=== PATIENT | male | born 1985 | race African-American/Black ===

== ENCOUNTER 2017-11-03 15:21 | Emergency (ER) | payer SELFPAY ==
[~2017-11-03] VITALS: Ht 193 cm; Wt 100.0 kg
[~2017-11-03 15:21] MED LIST: IBUP800T23 PO
[2017-11-03 15:27] VITALS: BP 168/73; PULSE 50; RESP 18; TEMP 97.2; O2SAT 99
--- NOTE | 2017-11-03 15:31 | PD ---
HPI Chief Complaint: Skin Problem Time Seen by Provider: 15:30 Travel History International Travel<30 days: No Contact w/Intl Traveler<30days: No Traveled to known affect area: No History of Present Illness HPI 32-year-old male with no significant medical history presents emergency department for evaluation of superficial laceration to his mid forehead. Patient states he ran into the door of a truck. Denies any loss of consciousness. Denies any pain at the site. He is up-to-date on his tetanus vaccination. No other symptoms to report. PFSH Past Medical History Bipolar Disorder: Yes Diminished Hearing: No Social History Alcohol Use: Yes (OCCASIONAL) Tobacco Use: Yes (OCCASIONAL) Substance Use: Yes (THC) Allergies-Medications (Allergen,Severity, Reaction): Coded Allergies: No Known Allergies (Verified Adverse Reaction, Unknown, 11/03/17) Reported Meds & Prescriptions Reported Meds & Active Scripts Active Review of Systems Except as stated in HPI: all other systems reviewed are Neg Physical Exam Narrative GENERAL: Well-nourished, well-developed male patient in no acute distress SKIN: Focused skin assessment warm/dry. HEAD: Normocephalic. 1 cm superficial laceration in the mid forehead. It is well approximated. Bleeding is controlled. EYES: No scleral icterus. No injection or drainage. EOMI. PERRLA NECK: Supple, trachea midline. No JVD or lymphadenopathy. CARDIOVASCULAR: Regular rate and rhythm without murmurs, gallops, or rubs. RESPIRATORY: Breath sounds equal bilaterally. No accessory muscle use. MUSCULOSKELETAL: No cyanosis, or edema. Moves all extremities. Equal strength bilaterally. BACK: Nontender without obvious deformity. No CVA tenderness. Data Data Last Documented VS Vital Signs Date Time Temp Pulse Resp B/P (MAP) Pulse Ox O2 Delivery O2 Flow Rate FiO2 11/03/17 15:27 97.2 50 18 168/73 (104) 99 Orders Orders Ed Discharge Order (11/03/17 15:46) [facility] Medical Decision Making Medical Screen Exam Complete: Yes Emergency Medical Condition: Yes Medical Record Reviewed: Yes Differential Diagnosis Laceration superficial versus deep versus contusion versus abrasion versus avulsion Narrative Course 32-year-old male presents emergency department for evaluation of a laceration to mid forehead. Patient appears without distress. Laceration is cleansed. He does not need any significant approximation. It will heal on its own. Patient is counseled on care and agrees to return immediately with acute worsening symptoms. Diagnosis Primary Impression: Forehead laceration Qualified Codes: S01.81XA - Laceration without foreign body of other part of head, initial encounter Referrals: Primary Care Physician Patient Instructions: General Instructions, Skin Adhesive Care (ED) Additional Instructions: Keep the area dry for 24 hours Follow-up the primary care provider Return immediately with acute worsening symptoms Med/Other Pt SpecificInfo: No Change to Meds Disposition: 01 DISCHARGE HOME Condition: Stable Leanne Bone November 03, 2017 15:31
== END 2017-11-03 16:00 | disposition home or self-care (01) ==
LOC: NEPK 15:21
DX: S01.81XA Laceration without foreign body of other part of head, initial encounter (principal); W22.8XXA Striking against or struck by other objects, initial encounter
CPT/HCPCS: 99282